=== PATIENT | female | born 1955 | race Caucasian/White ===

== ENCOUNTER 2017-11-10 12:46 | Observation (INO) ==
[2017-11-10] MEDS ORDERED: 0.9 % Sodium Chloride 1,000 ML IVC SCH (13:00)
[2017-11-10 13:27] LABS: Basophils # 0.1 K/mcL (0.0-0.2); Eosinophils # 0.1 K/mcL (0.0-0.6); Eosinophils % 0.7 %; Hematocrit 40.6 % (35.3-44.9); Hemoglobin 13.6 g/dL (11.5-15.4); Immature Granulocytes % 0.3 % (0-4); Lymphocytes # 1.5 K/mcL (0.6-4.6); Lymphocytes % 21.9 %; Mean Corpuscular HGB Conc 33.5 g/dL (31.6-35.5); Mean Corpuscular Hemoglobin 32.9 pg (28.0-33.3); Mean Corpuscular Volume 98.3 fL (83.0-100.0); Mean Platelet Volume 8.5 fL (9.4-12.4); Monocytes # 0.4 K/mcL (0.0-1.3); Monocytes % 5.7 %; Neutrophils # 4.8 K/mcL (1.6-8.9); Nucleated Red Blood Cells 0.3 /100 WBC (0); Platelet Count 282 K/mcL (140-400); Red Blood Count 4.13 M/mcL (3.82-4.97); Red Cell Distribution Width 11.9 % (11.5-14.5); Segmented Neutrophils % 70.4 %
[2017-11-10] MEDS ORDERED: Nitroglycerin 0.4 MG TAB.SUBL SL PRN (13:30)
--- NOTE | 2017-11-10 13:32 | Emergency Department Note ---
Disposition Clinical Impression: Pre-syncope, Weakness Chest pain Qualifiers: Chest pain type: unspecified Qualified Code(s): R07.9 - Chest pain, unspecified Fatigue Qualifiers: Fatigue type: unspecified Qualified Code(s): R53.83 - Other fatigue Disposition: Admitted As Inpatient Condition: Fair Time of Disposition: 15:49 Chest Pain HPI - General Chief Complaint: ED Chest Pain Time Seen by Provider: 11/10/17 12:54 Source: patient, EMS Limitations: no limitations Vital Signs Reviewed: Yes Nursing Notes Reviewed: Yes - History of Present Illness HPI Narrative: 62-year-old female complains of sudden onset of chest pain between hours of 10 AM and 1 PM today. Patient states she is driving her car when she suddenly felt lightheaded and dizzy and having the chest pressure which was 5/10 with no radiation to arms legs and neck. Patient states she had some shortness of breath and associated numbness to bilateral lower extremities. Patient states that she still has pain which is 5/10 in intensity. Patient states she takes 4 baby aspirin daily for history of surgery for repair of holes in her heart per the patient back in 2011 in 2012 in [place]. Patient also states she has history of renal insufficiency but is not on dialysis and continues to make urine. Severity scale (1-10): 5 - Related Data Home Medications Medication Instructions Recorded Confirmed Aspirin 324 mg PO DAILY 03/26/15 11/10/17 Diltiazem HCl [Cardizem] 120 mg PO DAILY 03/26/15 11/10/17 LORazepam [Ativan] 1 mg PO BID 03/26/15 11/10/17 Pantoprazole Sodium [Protonix] 40 mg PO BID 03/26/15 11/10/17 CarBAMazepine [Carbamazepine ER] 100 mg PO BID PRN 11/10/17 11/10/17 Ergocalciferol (VITAMIN D2) 50,000 unit PO QWEEK 11/10/17 11/10/17 [Vitamin D2] Nortriptyline [Pamelor] 10 mg PO HS 11/10/17 11/10/17 Allergies Allergy/AdvReac Type Severity Reaction Status Date / Time amitriptyline Allergy Difficulty Verified 03/25/15 22:29 Breathing atenolol Allergy Difficulty Verified 03/25/15 22:29 Breathing cimetidine [From Tagamet] Allergy Difficulty Verified 03/25/15 22:29 Breathing clarithromycin [From Biaxin] Allergy Difficulty Verified 03/25/15 22:29 Breathing codeine Allergy Difficulty Verified 03/25/15 22:29 Breathing famotidine [From Pepcid] Allergy Difficulty Verified 03/25/15 22:29 Breathing gabapentin Allergy Difficulty Verified 03/25/15 22:29 Breathing Hydromorphone [From Dilaudid] Allergy Difficulty Verified 03/25/15 22:29 Breathing metoprolol [From Toprol XL] Allergy Difficulty Verified 03/25/15 22:29 Breathing mirtazapine Allergy Difficulty Verified 03/25/15 22:29 Breathing omeprazole [From Prilosec] Allergy Difficulty Verified 03/25/15 22:29 Breathing Penicillins Allergy Difficulty Verified 03/25/15 22:29 Breathing ranitidine [From Tritec] Allergy Difficulty Verified 03/25/15 22:29 Breathing rosuvastatin [From Crestor] Allergy Difficulty Verified 03/25/15 22:29 Breathing simvastatin [From Zocor] Allergy Difficulty Verified 03/25/15 22:29 Breathing Sulfa (Sulfonamide Allergy Difficulty Verified 03/25/15 22:29 Antibiotics) Breathing sulfamethoxazole Allergy Difficulty Verified 03/25/15 22:29 [From Bactrim] Breathing trimethoprim [From Bactrim] Allergy Difficulty Verified 03/25/15 22:29 Breathing venlafaxine [From Effexor] Allergy Difficulty Verified 03/25/15 22:29 Breathing propanalol Allergy Difficulty Uncoded 03/25/15 22:29 Breathing All systems ED: reviewed and negative except as stated. Review of Systems: As Per HPI Constitutional: Reports: chills, weakness. Denies: fever ENT ED: Denies: congestion Cardiovascular: Reports: chest pain. Denies: palpitations Respiratory: Reports: dyspnea. Denies: cough Gastrointestinal: Reports: nausea. Denies: abdominal pain, vomiting, diarrhea Genitourinary: Denies: urgency, dysuria Musculoskeletal: Reports: neck pain Neurological: Reports: headache Endocrine: Reports: fatigue Chest Pain PMH - Past Medical History Medical history: Reports: fibromyalgia, hyperlipidemia, hypertension Surgical history: Reports: cholecystectomy Psychiatric history: Reports: no psych history - Social History Smoking Status: Current every day smoker Alcohol use: Reports: none Drug use: Reports: none Physical Exam Vital Signs Temperature 97.8 F 03/20/18 12:47 Pulse Rate 86 11/10/17 12:47 Respiratory Rate 20 11/10/17 12:47 Blood Pressure 160/77 11/10/17 12:47 O2 Sat by Pulse Oximetry 100 11/10/17 12:47 Temperature 97.8 F 11/10/17 12:47 Pulse Rate 86 11/10/17 12:47 Respiratory Rate 20 11/10/17 12:47 Blood Pressure 160/77 11/10/17 12:47 O2 Sat by Pulse Oximetry 100 11/10/17 12:47 Oxygen Delivery Oxygen Delivery Room Air CONSTITUTIONAL: Well-dressed well-nourished; A&O X 3, in no apparent distress, patient is very slow speaking and appears heavily fatigued. Vital signs show no fever but and hypertension at 160/77. HEAD: Normocephalic; atraumatic EYES: PERRL, no scleral icterus NOSE: The nose is normal in appearance without rhinorrhea NECK: No JVD or distended neck veins RESP: Normal chest excursion with respiration; breath sounds slightly diminished in left upper lobe when compared to right upper lobe; no wheezes, rhonchi, or rales CARD: Regular rhythm, without murmurs, rub or gallop ABD: Non-distended; non-tender, soft, without rigidity, rebound or guarding,no pulsatile mass CHEST: No pain with palpation SKIN: Normal for age and race; warm and dry without diaphoresis ; no apparent lesions EXTREMITIES: Pulses are 2 plus and equal times 4 extremities, no peripheral edema or calf muscle pain, capillary refill delayed 3+, no pallor NEUROLOGICAL: Patient is alert and oriented times three. Cranial nerves III- XII are intact. Sensory and motor functions are intact. Strength is 5/5 for flexion and extension in all 4 extremities. Patellar DTRS are equal and intact. Finger to nose testing is equal and normal bilaterally. No dysdiadochokinesis - General Limitations: no limitations General appearance: alert, in no apparent distress Course - Reevaluation(s) Reevaluation #1: Pt is back from imaging. awaiting nitro trial. Time: 14:22 Reevaluation #2: Nitroglycerin trial initiated. Patient has received first dose. Patient states her chest pain is starting to lighten up a little. Time: 14:39 Reevaluation #3: Patient's pain level after 1 nitroglycerin is 2/10. Second nitroglycerin will be given. The patient's pain is 0 at that time 1 inch Nitrol paste will be applied Time: 14:56 - Consultations Consultation #1: Dr. Grant the hospitalist as accepted patient for admission to a telemetry bed at 1548 hrs. Time: 15:49 Vital Signs Temperature 97.8 F 11/10/17 12:47 Pulse Rate 86 11/10/17 12:47 Respiratory Rate 20 11/10/17 12:47 Blood Pressure 160/77 11/10/17 12:47 O2 Sat by Pulse Oximetry 100 11/10/17 12:47 Temperature 97.8 F 11/10/17 12:47 Pulse Rate 77 11/10/17 14:38 Respiratory Rate 16 11/10/17 14:38 Blood Pressure 124/66 11/10/17 14:38 O2 Sat by Pulse Oximetry 98 11/10/17 14:38 Oxygen Delivery Oxygen Delivery Room Air Chest Pain - MDM Narrative Medical decision making narrative: Patient presents with chest pain and presyncopal symptoms with concern for possible ACS/PA, dysrhythmia, PE, and pneumonia when patient explains episodes of chills and fatigue. Labs ordered to include CBC, BMP, troponin, d-dimer. Imaging to include chest x-ray, and CT head and neck because patient also complains of headache and neck pain. Patient's workup has been negative for any elevation of troponin, worsening chest pain, and no signs of widening mediastinum, obscuration of aortic knob, and no sign of pneumonia on chest x-ray. CT head was negative for any acute clinically significant abnormalities. CT neck showed a 1.8 thyroid nodule with radiologist comment for follow-up ultrasound. Patient's d-dimer was 607, and has a history of pulmonary embolism in the past. Her age-adjusted d-dimer would be upper limit of 620, normally would not recommend a CTA chest but given her history CTA chest was ordered. Patient is currently pain-free after 3 rounds of sublingual nitroglycerin. 1 inch Nitropaste was applied to patient's chest. Patient CTA chest came back negative for pulmonary embolism or aortic dissection. Patient is currently being admitted for chest pain rule out and trending of troponins with follow-up with cardiology for further assessment for her chest pain and presyncope symptoms. Patient understands and agrees to treatment plan. Dr. Grant the hospitalist as accepted patient for admission to a telemetry bed at 1548 hrs in stable condition. This documentation is done with the assistance of Dragon dictation. Despite efforts made to ensure accuracy, there may be inaccuracies in lead infrastructure architect or spelling and typographical errors. I examined this patient and my medical decision-making was reviewed with the Resident Physician. I agree with the documented findings, disposition and treatment plan as described except to the extent set forth below. Patient seen and evaluated by Dr. Vazquez and myself, I agree with his evaluation management plan supervise care the patient out stay. Patient comes in today and is complaining of chest pain and possible presyncopal episode feeling weak like she could pass out. She did have aspirin today takes for those. No nitroglycerin. She states she has had a hole in her heart before but no history of coronary disease. Also set a PE in the past. Were negative and a cardiac workup rule out for PE and admit. She is in agreement with this plan. 1530 hrs.: Patient's pain-free after 2 nitroglycerin. Waiting on her CTA to come back and that admission. Chest X-Ray 11/10/17 12:54 IMPRESSION: No radiographic evidence of acute cardiopulmonary process. Findings suggestive of COPD. Mildly enlarged cardiomediastinal silhouette. D/ / 11/10/2017 14:26:14 Stefan Cooper MD / earnold Interpreting Provider: Stefan Cooper MD Cervical Spine CT 11/10/17 12:56 IMPRESSION: 1. No acute findings in the cervical spine. 2. Mild cervical spine degenerative changes most severe at C4/C5. 3. 1.8 cm right thyroid nodule. Recommend further evaluation with sonography on a nonemergent basis as below. RECOMMENDATIONS: Managing Incidental Thyroid Nodule Detected at CT or MRI or US 1. Further evaluation by thyroid Ultrasound recommended for these incidental nodules: Patient Age 35 years or more - Nodule 1.5 cm in size or greater 3. NO further imaging is recommended in the following scenarios -No f/u imaging is recommended for ITNs not meeting the above criteria. -No US or f/u recommended for ITNs without high risk features in pts. with limited life expectancy or significant co-morbidities, unless clinically warranted. Note: These recommendations do not apply to pts. w/ increased risk for thyroid cancer or pts. with symptomatic thyroid disease. Recommendations for f/u of Incidental Thyroid Nodules (ITN) found on CT, MR, NM and Extrathyroidal US are based upon the ACR white paper and Bautista 3-tiered system for managing ITNs: J Am Chery Radiol. 2015 Sep;12(2): 143-50 D/ / Suhail Tamayo MD / Suhail Tamayo MD Interpreting Provider: Suhail Tamayo MD Head CT 11/10/17 12:56 IMPRESSION: 1. No acute intracranial abnormality. 2. Atherosclerosis. 3. Chronic lacunar infarct in the left cerebellum. D/ / Vin Osborn MD / Vin Osborn MD Interpreting Provider: Vin Osborn MD Chest X-Ray 11/10/17 12:54 IMPRESSION: No radiographic evidence of acute cardiopulmonary process. Findings suggestive of COPD. Mildly enlarged cardiomediastinal silhouette. D/ / 11/10/2017 14:26:14 Stefan Cooper MD / earnold Interpreting Provider: Stefan Cooper MD Cervical Spine CT 11/10/17 12:56 IMPRESSION: 1. No acute findings in the cervical spine. 2. Mild cervical spine degenerative changes most severe at C4/C5. 3. 1.8 cm right thyroid nodule. Recommend further evaluation with sonography on a nonemergent basis as below. RECOMMENDATIONS: Managing Incidental Thyroid Nodule Detected at CT or MRI or US 1. Further evaluation by thyroid Ultrasound recommended for these incidental nodules: Patient Age 35 years or more - Nodule 1.5 cm in size or greater 3. NO further imaging is recommended in the following scenarios -No f/u imaging is recommended for ITNs not meeting the above criteria. -No US or f/u recommended for ITNs without high risk features in pts. with limited life expectancy or significant co-morbidities, unless clinically warranted. Note: These recommendations do not apply to pts. w/ increased risk for thyroid cancer or pts. with symptomatic thyroid disease. Recommendations for f/u of Incidental Thyroid Nodules (ITN) found on CT, MR, NM and Extrathyroidal US are based upon the ACR white paper and Bautista 3-tiered system for managing ITNs: J Am Chery Radiol. 2015 Sep;12(2): 143-50 D/ / Suhail Tamayo MD / Suhail Tamayo MD Interpreting Provider: Suhail Tamayo MD Head CT 11/10/17 12:56 IMPRESSION: 1. No acute intracranial abnormality. 2. Atherosclerosis. 3. Chronic lacunar infarct in the left cerebellum. D/ / Vin Osborn MD / Vin Osborn MD Interpreting Provider: Vin Osborn MD Chest CTA 11/10/17 14:47 IMPRESSION: No evidence of pulmonary embolism or acute pulmonary abnormality. Centrilobular emphysema. D/ / Delbert Littlejohn MD / Delbert Littlejohn MD Interpreting Provider: Delbert Littlejohn MD 1600 hrs.: PE study is negative. Hospital 6 except the patient for admission. Patient's pain-free now and she is in agreement with this plan. Patient's critical care time excluding any separately billable procedures is 30 minutes. - Lab Data Lab results reviewed: Yes I reviewed the patient's lab results. Lab results narrative: Short CBC 11/10/17 Range/Units 13:21 WBC 6.9 (4.3-11.1) K/mcL Hgb 13.6 (11.5-15.4) g/dL Hct 40.6 (35.3-44.9) % Plt Count 282 (140-400) K/mcL Neutrophils # 4.8 (1.6-8.9) K/mcL BMP 11/10/17 Range/Units 13:21 Sodium 141 (136-145) mEq/L Potassium 3.9 (3.5-5.1) mEq/L Chloride 108 H (98-107) mEq/L Carbon Dioxide 25 (23-29) mEq/L BUN 12 (8-23) mg/dL Creatinine 0.81 (0.60-1.20) mg/dL Glucose 91 (70-105) mg/dL Calcium 9.7 (8.6-10.3) mg/dL Cardiac Enzymes 11/10/17 Range/Units 13:21 Troponin I < 0.03 (< 0.04) ng/mL Urine 11/10/17 Range/Units 15:35 Urine Color Yellow (Yellow) Urine Clarity Clear (Clear) Urine pH 8.0 (5.0-8.0) pH Units Ur Specific [place] 1.013 (1.010-1.025) Urine Protein Negative (Neg-Trace) mg/dL Urine Glucose (UA) Normal (Normal) mg/dL Result diagrams: 11/10/17 13:21 11/10/17 13:21 Lab Results 11/10/17 11/10/17 11/10/17 Range/Units 13:21 13:21 13:21 WBC 6.9 (4.3-11.1) K/mcL RBC 4.13 (3.82-4.97) M/mcL Hgb 13.6 (11.5-15.4) g/dL Hct 40.6 (35.3-44.9) % MCV 98.3 (83.0-100.0) fL MCH 32.9 (28.0-33.3) pg MCHC 33.5 (31.6-35.5) g/dL RDW 11.9 (11.5-14.5) % Plt Count 282 (140-400) K/mcL MPV 8.5 L (9.4-12.4) fL Immature Gran % 0.3 (0-4) % Seg Neutrophils % 70.4 % Lymphocytes % 21.9 % Monocytes % 5.7 % Eosinophils % 0.7 % Basophils % 1.0 % Neutrophils # 4.8 (1.6-8.9) K/mcL Lymphocytes # 1.5 (0.6-4.6) K/mcL Monocytes # 0.4 (0.0-1.3) K/mcL Eosinophils # 0.1 (0.0-0.6) K/mcL Basophils # 0.1 (0.0-0.2) K/mcL Nucleated RBCs/100 WBC 0.3 H (0) /100 WBC D-Dimer 607 H (0-500) ng/mLFEU Sodium 141 (136-145) mEq/L Potassium 3.9 (3.5-5.1) mEq/L Chloride 108 H (98-107) mEq/L Carbon Dioxide 25 (23-29) mEq/L BUN 12 (8-23) mg/dL Creatinine 0.81 (0.60-1.20) mg/dL Est GFR ( Amer) > 60 (> 60) Est GFR (Non-Af Amer) > 60 (> 60) BUN/Creatinine Ratio 15 (6-26) Glucose 91 (70-105) mg/dL Calculated Osmolality 291 (280-300) Calcium 9.7 (8.6-10.3) mg/dL Troponin I < 0.03 (< 0.04) ng/mL TSH 5.877 H (0.340-5.600) mcIU/mL Urine Color (Yellow) Urine Clarity (Clear) Urine pH (5.0-8.0) pH Units Ur Specific [place] (1.010-1.025) Urine Protein (Neg-Trace) mg/dL Urine Glucose (UA) (Normal) mg/dL Urine Ketones (Negative) mg/dL Urine Blood (Negative) Urine Nitrite (Negative) Urine Bilirubin (Negative) Urine Urobilinogen (Normal) mg/dL Ur Leukocyte Esterase (Negative) 11/10/17 Range/Units 15:35 WBC (4.3-11.1) K/mcL RBC (3.82-4.97) M/mcL Hgb (11.5-15.4) g/dL Hct (35.3-44.9) % MCV (83.0-100.0) fL MCH (28.0-33.3) pg MCHC (31.6-35.5) g/dL RDW (11.5-14.5) % Plt Count (140-400) K/mcL MPV (9.4-12.4) fL Immature Gran % (0-4) % Seg Neutrophils % % Lymphocytes % % Monocytes % % Eosinophils % % Basophils % % Neutrophils # (1.6-8.9) K/mcL Lymphocytes # (0.6-4.6) K/mcL Monocytes # (0.0-1.3) K/mcL Eosinophils # (0.0-0.6) K/mcL Basophils # (0.0-0.2) K/mcL Nucleated RBCs/100 WBC (0) /100 WBC D-Dimer (0-500) ng/mLFEU Sodium (136-145) mEq/L Potassium (3.5-5.1) mEq/L Chloride (98-107) mEq/L Carbon Dioxide (23-29) mEq/L BUN (8-23) mg/dL Creatinine (0.60-1.20) mg/dL Est GFR ( Amer) (> 60) Est GFR (Non-Af Amer) (> 60) BUN/Creatinine Ratio (6-26) Glucose (70-105) mg/dL Calculated Osmolality (280-300) Calcium (8.6-10.3) mg/dL Troponin I (< 0.04) ng/mL TSH (0.340-5.600) mcIU/mL Urine Color Yellow (Yellow) Urine Clarity Clear (Clear) Urine pH 8.0 (5.0-8.0) pH Units Ur Specific [place] 1.013 (1.010-1.025) Urine Protein Negative (Neg-Trace) mg/dL Urine Glucose (UA) Normal (Normal) mg/dL Urine Ketones Negative (Negative) mg/dL Urine Blood Negative (Negative) Urine Nitrite Negative (Negative) Urine Bilirubin Negative (Negative) Urine Urobilinogen Normal (Normal) mg/dL Ur Leukocyte Esterase Negative (Negative) - Radiology Data Radiology results reviewed: Yes I reviewed the patient's radiology results. Chest X-Ray 11/10/17 12:54 IMPRESSION: No radiographic evidence of acute cardiopulmonary process. Findings suggestive of COPD. Mildly enlarged cardiomediastinal silhouette. D/ / 11/10/2017 14:26:14 Stefan Cooper MD / earnold Interpreting Provider: Stefan Cooper MD Cervical Spine CT 11/10/17 12:56 IMPRESSION: 1. No acute findings in the cervical spine. 2. Mild cervical spine degenerative changes most severe at C4/C5. 3. 1.8 cm right thyroid nodule. Recommend further evaluation with sonography on a nonemergent basis as below. RECOMMENDATIONS: Managing Incidental Thyroid Nodule Detected at CT or MRI or US 1. Further evaluation by thyroid Ultrasound recommended for these incidental nodules: Patient Age 35 years or more - Nodule 1.5 cm in size or greater 3. NO further imaging is recommended in the following scenarios -No f/u imaging is recommended for ITNs not meeting the above criteria. -No US or f/u recommended for ITNs without high risk features in pts. with limited life expectancy or significant co-morbidities, unless clinically warranted. Note: These recommendations do not apply to pts. w/ increased risk for thyroid cancer or pts. with symptomatic thyroid disease. Recommendations for f/u of Incidental Thyroid Nodules (ITN) found on CT, MR, NM and Extrathyroidal US are based upon the ACR white paper and Bautista 3-tiered system for managing ITNs: J Am Chery Radiol. 2015 Sep;12(2): 143-50 D/ / Suhail Tamayo MD / Suhail Tamayo MD Interpreting Provider: Suhail Tamayo MD Head CT 11/10/17 12:56 IMPRESSION: 1. No acute intracranial abnormality. 2. Atherosclerosis. 3. Chronic lacunar infarct in the left cerebellum. D/ / Vin Osborn MD / Vin Osborn MD Interpreting Provider: Vin Osborn MD Chest CTA 11/10/17 14:47 IMPRESSION: No evidence of pulmonary embolism or acute pulmonary abnormality. Centrilobular emphysema. D/ / Delbert Littlejohn MD / Delbert Littlejohn MD Interpreting Provider: Delbert Littlejohn MD - EKG Data EKG attestation: Yes I reviewed and interpreted this EKG. EKG results narrative: EKG 1 taken 2017 at 1257 hrs. shows sinus rhythm at a rate of 75 bpm his home with no acute ST elevations or depressions in any leads, no QRS widening or QT prolongation. Patient does have T-wave inversions in V2 which is not seen on previous EKG taken approximately 30 minutes ago. No EKG available prior to today EKG 3: Taken at 1534 hrs. shows a sinus rhythm at a rate of 72 beats minute with no changes from previous EKG, no evolution concerning inverted T waves in V2 Heart Score - Score History: Moderately Suspicious EKG: Normal Age: 45-65 Risk Factors: 1-2 risk factors Troponin: Less than normal limit HEART Score Total: 3
[2017-11-10 13:56] LABS: Troponin I < 0.03 ng/mL (< 0.04)
[2017-11-10] MEDS ORDERED: Nitroglycerin 0.4 MG TAB.SUBL SL STA (14:14)
[2017-11-10 14:39] LABS: BUN/Creatinine Ratio 15 (6-26); Blood Urea Nitrogen 12 mg/dL (8-23); Calcium 9.7 mg/dL (8.6-10.3); Carbon Dioxide 25 mEq/L (23-29); Chloride 108 mEq/L (98-107); Glucose 91 mg/dL (70-105); Osmolality,Calculated 291 (280-300); Potassium 3.9 mEq/L (3.5-5.1); Sodium 141 mEq/L (136-145); eGFR For African Americans > 60 (> 60); eGFR For Non-African Americans > 60 (> 60)
[2017-11-10] MEDS ORDERED: Nitroglycerin 1 INCH/GM PACKET TP STA (14:56)
[2017-11-10 15:44] LABS: Bilirubin,Urine Negative (Negative); Blood,Urine Negative (Negative); Clarity,Urine Clear (Clear); Color,Urine Yellow (Yellow); Glucose,Urine (UA) Normal (Normal); Ketones,Urine Negative (Negative); Leukocyte Esterase,Urine Negative (Negative); Nitrite,Urine Negative (Negative); Protein,Urine Negative (Neg-Trace); Specific Gravity,Urine 1.013 (1.010-1.025); Urobilinogen,Urine Normal (Normal)
[2017-11-10 15:51] LABS: Thyroid Stimulating Hormone 5.877 mcIU/mL (0.340-5.600)
[2017-11-10] MEDS ORDERED: Acetaminophen 325 MG TABLET PO PRN (16:38)
[2017-11-10] MEDS ORDERED: Naloxone 0.4 MG/ML INJ IVP PRN (16:38)
--- NOTE | 2017-11-10 16:49 | Internal Med History&Physical ---
Date of Encounter: 11/10/17 Time of Encounter: 16:30 Assessment and Plan (1) Chest pain Current visit: Yes Status: Acute Patient presenting with acute onset chest pain relieved with nitroglycerin was driving. Does have risk factors for coronary artery disease. Will place patient in hospital for observation. Trend troponins. If troponins are negative, will do stress test. Monitor with telemetry. Qualifiers: Chest pain type: precordial pain Qualified Code(s): R07.2 - Precordial pain (2) Pre-syncope Current visit: Yes Status: Acute Presyncope symptoms today. Also episode of syncope 2-[address] patient on telemetry. Check carotid Dopplers and 2-D echocardiogram. CT head was negative for any acute stroke. (3) Hyperlipidemia Current visit: Yes Status: Chronic Check lipid profile. Not on any medications at this time. Qualifiers: Hyperlipidemia type: mixed hyperlipidemia Qualified Code(s): E78.2 - Mixed hyperlipidemia (4) Hypertension Current visit: Yes Status: Chronic Blood pressure was elevated on arrival here but has since improved. We will continue home medications. Qualifiers: Hypertension type: essential hypertension Qualified Code(s): I10 - Essential (primary) hypertension (5) S/P patent foramen ovale closure Current visit: No Status: Chronic Check 2-D echocardiogram. (6) DVT prophylaxis Current visit: Yes Status: Acute With subcutaneous heparin Internal Medicine - H&P: HPI Chief complaint: Chest pain, lightheadedness Admitted From: Emergency Dept Plans for Post Hospital Care: Home History of present illness: Ms. Leon is a 62 year old female patient who was driving today With history of PFO status post closure presented to the ER with complaints of chest pain and lightheadedness while she was driving. She describes the chest pain as beginning on the left side of her chest and radiating across to the right. Chest pain resolved after she received nitroglycerin in the ER. She denies any shortness of breath. She was on her way to see her primary care provider for regular appointment when she began to develop these symptoms. She also developed lightheadedness and so pulled over and called EMS. She also describes an episode of syncope 2-3 days back while she was at her home. She has been dealing with a lot of pain in her neck since she received injections in the neck earlier this year. During one such episode of pain she passed out on the floor. She is unsure how long it lasted but it was very brief. She did not get evaluated after that episode. She denies any dizziness when standing. No prior history of coronary artery disease. She usually follows up with cardiology for her PFO every year. She is also had a stress test in the past but does not recollect when. Past Med Surg Social Fam HX - Past Medical History Attestation: Yes The following information was validated with the patient. Source: patient Medical history: fibromyalgia, hyperlipidemia, hypertension Psychiatric history: no psych history - Past Surgical History Surgical History: cholecystectomy - Social History Smoking Status: Current every day smoker Smokeless Tobacco Status: No Alcohol use: none Drug use: none - Additional Family History Additional family history: Reviewed and found to be noncontributory at this time Internal Medicine - H&P: Meds Aspirin 324 mg PO DAILY 03/26/15 [History] Diltiazem HCl [Cardizem] 120 mg PO DAILY 03/26/15 [History] LORazepam [Ativan] 1 mg PO BID 03/26/15 [History] Pantoprazole Sodium [Protonix] 40 mg PO BID 03/26/15 [History] CarBAMazepine [Carbamazepine ER] 100 mg PO BID PRN 11/10/17 [History] Ergocalciferol (VITAMIN D2) [Vitamin D2] 50,000 unit PO QWEEK 11/10/17 [History] Nortriptyline [Pamelor] 10 mg PO HS 11/10/17 [History] 3 Allergy/AdvReac Type Severity Reaction Status Date / Time amitriptyline Allergy Difficulty Verified 03/25/15 22:29 Breathing atenolol Allergy Difficulty Verified 03/25/15 22:29 Breathing cimetidine [From Tagamet] Allergy Difficulty Verified 03/25/15 22:29 Breathing clarithromycin [From Biaxin] Allergy Difficulty Verified 03/25/15 22:29 Breathing codeine Allergy Difficulty Verified 03/25/15 22:29 Breathing famotidine [From Pepcid] Allergy Difficulty Verified 03/25/15 22:29 Breathing gabapentin Allergy Difficulty Verified 03/25/15 22:29 Breathing Hydromorphone [From Dilaudid] Allergy Difficulty Verified 03/25/15 22:29 Breathing metoprolol [From Toprol XL] Allergy Difficulty Verified 03/25/15 22:29 Breathing mirtazapine Allergy Difficulty Verified 03/25/15 22:29 Breathing omeprazole [From Prilosec] Allergy Difficulty Verified 03/25/15 22:29 Breathing Penicillins Allergy Difficulty Verified 03/25/15 22:29 Breathing ranitidine [From Tritec] Allergy Difficulty Verified 03/25/15 22:29 Breathing rosuvastatin [From Crestor] Allergy Difficulty Verified 03/25/15 22:29 Breathing simvastatin [From Zocor] Allergy Difficulty Verified 03/25/15 22:29 Breathing Sulfa (Sulfonamide Allergy Difficulty Verified 03/25/15 22:29 Antibiotics) Breathing sulfamethoxazole Allergy Difficulty Verified 03/25/15 22:29 [From Bactrim] Breathing trimethoprim [From Bactrim] Allergy Difficulty Verified 03/25/15 22:29 Breathing venlafaxine [From Effexor] Allergy Difficulty Verified 03/25/15 22:29 Breathing propanalol Allergy Difficulty Uncoded 03/25/15 22:29 Breathing All Systems PM: A 10-system review of systems was performed and is negative for pertinent findings except as documented above in the HPI. - EENT Eyes: no change in vision, no discharge, no pain, no photophobia - Cardiovascular Cardiovascular ROS IM: chest pain, lightheadedness, no diaphoresis, no dyspnea, no palpitations, no syncope - Respiratory Respiratory: no cough, no dyspnea, no wheezing, no excessive phlegm production - Gastrointestinal Gastrointestinal: no abdominal pain, no diarrhea, no hematemesis, no hematochezia, no melena, no nausea, no vomiting - Genitourinary Genitourinary: no change in urinary stream, no dysuria, no flank pain, no hematuria - Musculoskeletal Musculoskeletal ROS IM: no numbness, no tingling - Integumentary Integumentary IM: no rash, no unusual bruising - Neurological Neurological ROS: no confusion, no convulsions, no focal weakness, no numbness, no tingling, no tremor(s) - Hematologic/Lymphatic Hematologic/Lymphatic: no easy bruising - Constitutional Vitals: Temp Pulse Resp BP Pulse Ox 97.8 F 77 16 124/66 98 11/10/17 12:47 11/10/17 14:38 11/10/17 14:38 11/10/17 14:38 11/10/17 14:38 General appearance: Present: cooperative, mild distress, A&O X 3, pleasant, answers questions appropriately - Neck Neck exam general surgery: Present: supple, trachea midline. Absent: lymphadenopathy - Respiratory Respiratory exam: Present: CTAB. Absent: accessory muscle use, rales, rhonchi, wheezes - Cardiovascular Cardiovascular exam: Present: RRR, +S1, +S2. Absent: diastolic murmur, gallop, rubs, systolic murmur - GI/Abdominal GI/Abdominal exam: Present: normal bowel sounds, soft, no peritoneal signs. Absent: distended, tenderness - Extremities Exam Extremities exam: Present: warm, radial pulses palpable and symmetrical. Absent : calf tenderness, cyanotic, pedal edema - Neurological Exam Neurological exam: Present: CN II-XII intact, oriented X3, no focal deficits. Absent: facial droop, speech deficit - Skin Skin exam: Present: dry, intact Internal Med - H&P Results - Labs CBC & Chem 7: 11/10/17 13:21 11/10/17 13:21 - EKG Data -: EKG Interpreted by Myself EKG shows normal: sinus rhythm, ST-T waves (T-wave inversion in V1 and V2) - EKG Data Prior EKG available for review: no
[2017-11-10] MEDS ORDERED: CarBAMazepine XR (12 hr) 100 MG TAB PO PRN (16:54)
[2017-11-10] MEDS: Ringers Solution, Lactated 1,000 ML IVC SCH (17:36)
[2017-11-10] MEDS: *HR* Heparin 5,000 UNIT/ML VIAL SQ SCH (17:36)
[2017-11-10] MEDS ORDERED: NON-FORMULARY MEDICATION 1 EACH EACH (Pantoprazole Sodium [Protonix] 40 MG) PO SCH (21:00)
[2017-11-10] MEDS: *HR* LORazepam 1 MG TABLET PO PRN (21:24)
[2017-11-11 03:37] LABS: Basophils # 0.1 K/mcL (0.0-0.2); Basophils % 1.1 %; Eosinophils # 0.1 K/mcL (0.0-0.6); Eosinophils % 1.9 %; Hematocrit 35.6 % (35.3-44.9); Immature Granulocytes % 0.2 % (0-4); Lymphocytes # 2.3 K/mcL (0.6-4.6); Lymphocytes % 43.6 %; Mean Corpuscular HGB Conc 32.9 g/dL (31.6-35.5); Mean Corpuscular Hemoglobin 32.9 pg (28.0-33.3); Mean Platelet Volume 8.9 fL (9.4-12.4); Monocytes # 0.4 K/mcL (0.0-1.3); Monocytes % 7.4 %; Neutrophils # 2.4 K/mcL (1.6-8.9); Platelet Count 241 K/mcL (140-400); Red Blood Count 3.56 M/mcL (3.82-4.97); Red Cell Distribution Width 11.9 % (11.5-14.5); Segmented Neutrophils % 45.8 %
[2017-11-11 03:41] LABS: Hemoglobin 11.7 g/dL (11.5-15.4)
[2017-11-11 03:56] LABS: BUN/Creatinine Ratio 20 (6-26); Blood Urea Nitrogen 16 mg/dL (8-23); Calcium 8.6 mg/dL (8.6-10.3); Carbon Dioxide 25 mEq/L (23-29); Chloride 111 mEq/L (98-107); Chol/HDL Ratio 3.7 (0-4.9); Cholesterol 165 mg/dL (< 200); Glucose 93 mg/dL (70-105); HDL Cholesterol 45 mg/dL (40-59); LDL Cholesterol,Calculated 104 mg/dL (0-99); Osmolality,Calculated 291 (280-300); Potassium 4.2 mEq/L (3.5-5.1); Sodium 140 mEq/L (136-145); Triglycerides 80 mg/dL (< 150); eGFR For African Americans > 60 (> 60); eGFR For Non-African Americans > 60 (> 60)
[2017-11-11] MEDS ORDERED: Regadenoson 0.4 MG/5 ML SYRINGE IVP ONE (06:12)
[2017-11-11] MEDS: *HR* Heparin 5,000 UNIT/ML VIAL SQ SCH (06:23)
[2017-11-11 08:19] LABS: Estimated Average Glucose 111 mg/dl; Hemoglobin A1C 5.5 %
[2017-11-11] MEDS ORDERED: Aspirin 81 MG TAB.CHEW PO SCH (09:00)
[2017-11-11] MEDS ORDERED: Diltiazem CD (24hr) 120 MG CAPSULE PO SCH (09:00)
[2017-11-11] MEDS: Ringers Solution, Lactated 1,000 ML IVC SCH (10:35)
[2017-11-11] MEDS: *HR* LORazepam 1 MG TABLET PO PRN (10:47)
[2017-11-11 11:56] VITALS: BP 123/66
--- NOTE | 2017-11-11 12:02 | Discharge Summary ---
Orders not resulted at time of discharge: Pending orders 11/10/17 16:56 NM yuki perf SPECT multi [NM] Routine 11/11/17 08:33 NM yuki perf SPECT multi [NM] Routine Date of Encounter: 11/11/17 Time of Encounter: 12:00 - Discharge Diagnosis (1) Vasovagal episode Priority: Primary Status: Acute (2) Chest pain Priority: Primary Status: Acute Qualifiers: Chest pain type: precordial pain Qualified Code(s): R07.2 - Precordial pain (3) Pre-syncope Priority: Primary Status: Acute (4) Hyperlipidemia Priority: Secondary Status: Chronic Qualifiers: Hyperlipidemia type: mixed hyperlipidemia Qualified Code(s): E78.2 - Mixed hyperlipidemia (5) Hypertension Priority: Secondary Status: Chronic Qualifiers: Hypertension type: essential hypertension Qualified Code(s): I10 - Essential (primary) hypertension Hospital course: Ms. Leon is a 62 year old female who has a history of PFO status post closure presented to the ER with complaints of chest pain and lightheadedness while she was driving. She described the chest pain as beginning on the left side of her chest and radiating across to the right. Chest pain resolved after she received nitroglycerin in the ER. She denies any shortness of breath. She was on her way to see her primary care provider for regular appointment when she began to develop these symptoms. She also developed lightheadedness and so pulled over and called EMS. She also describes an episode of syncope 2-3 days back while she was at her home. Upon further questioning, the episode happened during micturition. She was admitted to the hospitalist service. There is no ST or T-wave changes on EKG. Cardiac enzymes were trended and remained not elevated. She underwent a nuclear stress test which was negative for ischemia. Carotid ultrasounds and echocardiogram were mostly unremarkable. She did have a mild diastolic heart failure. We believe that her symptoms were mostly vasovagal in nature and we recommend follow-up with her primary care physician. She was stable for discharge on 11/11 - Time Spent with Patient Total time spent providing and/or coordinating discharge services: Greater than 30 minutes - Discharge Medications Home Medications: Aspirin 324 mg PO DAILY 03/26/15 [History] Diltiazem HCl [Cardizem] 120 mg PO DAILY 03/26/15 [History] LORazepam [Ativan] 1 mg PO BID 03/26/15 [History] Pantoprazole Sodium [Protonix] 40 mg PO BID 03/26/15 [History] CarBAMazepine [Carbamazepine ER] 100 mg PO BID PRN 11/10/17 [History] Ergocalciferol (VITAMIN D2) [Vitamin D2] 50,000 unit PO QWEEK 11/10/17 [History] Nortriptyline [Pamelor] 10 mg PO HS 11/10/17 [History] Allergies/Adverse Reactions: 3 Allergy/AdvReac Type Severity Reaction Status Date / Time amitriptyline Allergy Difficulty Verified 03/25/15 22:29 Breathing atenolol Allergy Difficulty Verified 03/25/15 22:29 Breathing cimetidine [From Tagamet] Allergy Difficulty Verified 03/25/15 22:29 Breathing clarithromycin [From Biaxin] Allergy Difficulty Verified 03/25/15 22:29 Breathing codeine Allergy Difficulty Verified 03/25/15 22:29 Breathing famotidine [From Pepcid] Allergy Difficulty Verified 03/25/15 22:29 Breathing gabapentin Allergy Difficulty Verified 03/25/15 22:29 Breathing Hydromorphone [From Dilaudid] Allergy Difficulty Verified 03/25/15 22:29 Breathing metoprolol [From Toprol XL] Allergy Difficulty Verified 03/25/15 22:29 Breathing mirtazapine Allergy Difficulty Verified 03/25/15 22:29 Breathing omeprazole [From Prilosec] Allergy Difficulty Verified 03/25/15 22:29 Breathing Penicillins Allergy Difficulty Verified 03/25/15 22:29 Breathing ranitidine [From Tritec] Allergy Difficulty Verified 03/25/15 22:29 Breathing rosuvastatin [From Crestor] Allergy Difficulty Verified 03/25/15 22:29 Breathing simvastatin [From Zocor] Allergy Difficulty Verified 03/25/15 22:29 Breathing Sulfa (Sulfonamide Allergy Difficulty Verified 03/25/15 22:29 Antibiotics) Breathing sulfamethoxazole Allergy Difficulty Verified 03/25/15 22:29 [From Bactrim] Breathing trimethoprim [From Bactrim] Allergy Difficulty Verified 03/25/15 22:29 Breathing venlafaxine [From Effexor] Allergy Difficulty Verified 03/25/15 22:29 Breathing propanalol Allergy Difficulty Uncoded 03/25/15 22:29 Breathing Date of admission: 11/10/17 16:05 Primary care physician: Esdras Arias DO - Constitutional Vitals: Temp Pulse Resp BP Pulse Ox 98.3 F 66 14 123/66 99 11/11/17 11:55 11/11/17 11:55 11/11/17 11:55 11/11/17 11:55 11/11/17 11:55 General appearance: Present: cooperative, mild distress, A&O X 3, pleasant, answers questions appropriately Exam: GEN: NAD CVS: RRR. S1, S2, No m/r/g RESP: CTAB ABD: Soft, NT, ND, +BS EXT: No edema. 2+ DP. No rashes NEURO: Nonfocal - Patient Status Disposition: Home, Self-Care Overall status at discharge: patient is progressing back to baseline - Discharge Instructions Instructions: Chest Pain (DC) Follow Up With: Esdras Arias DO [Primary Care Provider] - (web request sent on 11/11/17) - Diet and Activity Activity: increase activity as tolerated Diet: regular diet
--- NOTE | 2017-11-11 19:42 | Electrocardiograph Report ---
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
--- NOTE | 2017-11-11 19:57 | Electrocardiograph Report ---
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
== END 2017-11-11 15:45 | disposition home or self-care (01) ==
LOC: 2ANU 12:46 → EMEROO 12:46 → 2ANU 17:03
PROVIDERS: ADMIT Internal Medicine; ATTEND Internal Medicine